=== PATIENT | male | born 1955 | race Caucasian/White ===

== ENCOUNTER → 2016-10-06 14:03 | Outpatient (CLI) | payer OTHER ==
[2015-11-27 16:12] VITALS: BMI 28.1
[~2016-10-06 14:03] MED LIST: ACETAMINOPHEN500 M1 PO; AMBIEN5 MG PO; AMITIZA24 MCG PO; BAYER CHEWABLE81 MG PO; COLACE100 MG PO; DILAUDID2 MG; DILAUDID2 MG PO; FISH OIL 1,2001 CAP PO; HYDROCODON-ACE1 EAC7 PO; NEURONTIN 300300 MG PO; NEXIUM20 MG PO; OMEPRAZOLE20 M1 PO; RENA-VITE TABL0.8 MG PO; SONATA10 MG PO; SYNTHROID175 MCG PO; THEREMS-M1 TAB PO; TUMS500 MG PO
== END | disposition home or self-care (01) ==
LOC: D.RAD 14:03
DX: M19.032 Primary osteoarthritis, left wrist (principal)

== ENCOUNTER → 2016-11-22 07:47 | Outpatient (CLI) | payer MEDICARE ==
[2015-11-27 16:12] VITALS: BMI 28.1
[~2016-11-22 07:47] MED LIST changes: -ACETAMINOPHEN500 M1 PO; -AMITIZA24 MCG PO; -BAYER CHEWABLE81 MG PO; -COLACE100 MG PO; -FISH OIL 1,2001 CAP PO; -HYDROCODON-ACE1 EAC7 PO; -OMEPRAZOLE20 M1 PO; -RENA-VITE TABL0.8 MG PO
== END | disposition home or self-care (01) ==
LOC: D.CT 07:47
DX: R52 Pain, unspecified (principal)

== ENCOUNTER 2016-12-07 07:22 | Day surgery (SDC) | payer MEDICARE ==
[~2016-12-07] VITALS: Ht 175.3 cm; Wt 104.3 kg
[2016-12-07 09:20] LABS: APTT 31.6 SECONDS (22.8-39.4); INR 1.05 (0.85-1.17); PROTIME 13.6 SECONDS (11.6-15.0)
[2016-12-07 09:21] LABS: ANION GAP 13.8 mmol/L (8-16); CALCIUM 9.4 mg/dL (8.5-10.1); CARBON DIOXIDE 30.3 mmol/L (21.0-32.0); CREATININE - SERUM 9.1 mg/dL (0.6-1.3); POTASSIUM - SERUM 5.1 mmol/L (3.5-5.1)
[2016-12-07] MEDS ORDERED: HYDROCODON-ACE1 EAC7 PO ×2 (09:29→13:37)
[2016-12-07] MEDS ORDERED: RENA-VITE TABL0.8 MG PO (09:30)
[2016-12-07] MEDS ORDERED: COLACE100 MG PO (09:30)
[2016-12-07] MEDS ORDERED: ACETAMINOPHEN500 M1 PO (09:31)
[2016-12-07] MEDS ORDERED: BAYER CHEWABLE81 MG PO (09:31)
[2016-12-07] MEDS ORDERED: OMEPRAZOLE20 M1 PO (09:31)
[2016-12-07] MEDS ORDERED: AMITIZA24 MCG PO (09:33)
[2016-12-07] MEDS ORDERED: FISH OIL 1,2001 CAP PO (09:33)
[2016-12-07 09:34] LABS: BASOPHILS 7.5 % (0-2); EOSINOPHILS 2.9 % (0-7); HEMATOCRIT 41.2 % (42.0-54.0); HEMOGLOBIN 13.2 g/dL (13.5-17.5); IMMATURE GRANULOCYTES 7.9 % (0-5); LYMPHOCYTES 13.7 % (15-50); MCH 28.1 pg (26.0-34.0); MCV 87.7 fL (80.0-100.0); MEAN PLATELET VOLUME 11.4 fL (7.4-10.4); MONOCYTES 8.9 % (2-11); NEUTROPHILS 59.1 % (40-80); RDW 15.5 % (11.5-14.5); WBC 18.3 10x3/uL (4.8-10.8)
[2016-12-07 09:36] LABS: PLATELET COUNT 290 10x3/uL (130-400)
[2016-12-07 09:38] VITALS: Ht 175.3 cm; Wt 104.3 kg
--- NOTE | 2016-12-07 13:46 | NUR ---
DAMASO AND ANAY DIFFFICULT TO OBTAIN. DR RAYA MACHADO AT BEDSIDE.
--- NOTE | 2016-12-07 13:50 | NUR ---
DOPPLER SIGNAL NOTED BY DR YUEN TO FISTULA
--- NOTE | 2016-12-07 16:00 | NUR ---
1430 O2 SAT 91 ON 2 LNC 1500 02 SAT 93 ON RA 1530 IV DC WITH CATHETHER TIP INTACT 1545 02 SAT STILL 93% ON RA
--- NOTE | 2016-12-10 13:22 | OP ---
PATIENT NAME: AUBRIE LEE MEDICAL RECORD: [id number] :57 LOCATION:[facility] ADMISSION DATE: SURGEON: RENETTA YUEN MD DATE OF OPERATION: 12/07/2016 PREOPERATIVE DIAGNOSES: 1. 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 2. Other mechanical complication of left arm arteriovenous fistula --- difficulty of access and excess pain on access. POSTOPERATIVE DIAGNOSES: 1. 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 2. Other mechanical complication of left arm arteriovenous fistula --- difficulty of access and excess pain on access. ADDITIONAL DIAGNOSES: End-stage renal disease and dependence upon renal dialysis. REFERRING PHYSICIAN: Karan Estrella MD SURGEON: Renetta Yuen MD ANESTHESIA: Supraclavicular block plus general anesthesia by LMA per KEYMODULE ASSEMBLY SUPERVISOR. OPERATION PERFORMED: Implantation of a standard wall thickness [place] Propaten 6 mm PTFE AV graft between the proximal radial artery at the level of the antecubital space and the basilic vein in the upper third of the arm. PREOPERATIVE NOTE: Mr. Lee is a 61-year-old white male patient, who has been on hospice for several years and has had a very good run with a left arm, I believe it is a brachiocephalic AV fistula. Fistula though has been increasingly difficult for the nurses to cannulate. The patient complains of pain upon cannulation and there is aneurysmal deterioration of the fistula with limited areas, which can be accessed and for all those reasons, the patient wants a new access created on the opposite arm. The patient has rather poor peripheral veins and I told him that I will do my best to try to make a primary AV fistula in his right arm, but he is agreeable and I have told him that it is possible that we might have to have a graft implanted, which of course, he does not want, he prefers a fistula at all possible as to why. Under initially supraclavicular block, which was inadequate for the operation, it did help to provide vasodilatation, the patient was given a general anesthesia with an LMA and the right arm prepped and draped in a sterile manner. I applied nitroglycerin topically to the skin of the arm and forearm and used a Luisana drain as a proximal venous tourniquet and examined him with ultrasound and found that there was really no usable vein in the forearm. There is no adequate antebrachial or cephalic vein for a standard type proximal radial artery based fistula or radiocephalic AV fistula. There was not a sufficient basilic vein to translocate. There was a median cubital vein, which courses to the cephalic vein, which just above the level of the antecubital space is sclerotic and very small. The basilic vein is the dominant vein, but there is no median cubital vein draining to it and at the level of the antecubital space, it is a considerable distance medial from the brachial, radial and ulnar arteries and would require mobilization through a separate incision and then along swing segment passed through the tunnel to create the anastomosis. The OPERATIVE REPORT [id number] AUBRIE LEE vein did not seem suitably located either for a forearm loop PTFE graft. I did also note that the patient had 2 arteries at the level of the antecubital space and followed these proximally and saw that the brachial artery in the upper third of the arm bifurcated with an early takeoff of the radial artery at that level. I elected to then implant a PTFE graft between the basilic vein and the radial artery at the antecubital space. I noted on ultrasound that the basilic vein in the upper third of the arm rather more distal than usual, joins the brachial vein to form the axillary vein. This may some point lead to problems with increased edema and would make a translocated basilic vein fistula a bit more difficult still. I made an incision on the medial aspect of the antecubital space in a hockey stick shape and exposed the anterior of the 2 arteries at that level, which I deemed to be the proximal radial artery. It was dissected and controlled with Silastic loops. Another incision was made on the medial aspect of the upper third of the arm and the basilic vein exposed and also controlled with Silastic loops. I chose a standard wall thickness 6 mm diameter PTFE Propaten graft, one end was beveled and then anastomosed end-to-side at the end of graft to side of basilic vein with running 6-0 Prolene after the vessel was flushed with heparinized saline. When the anastomosis was complete, it was treated with Evicel and later some additional Fibrillar was used for hemostasis. The release of clamps and loops demonstrated flow restored in the vein and back bleeding through the graft. The graft was then flushed again with heparinized saline and the suture line found to be sound and watertight. The graft was clamped near the venous anastomosis and then pulled through the subcutaneous tunnel and extremely close to the undersurface of the skin and passing anterior and as far lateral as I could make it with a nice arch. The graft was brought back to the arterial exposure incision. It was shortened and beveled and anastomosed end-to-side to the brachial artery. The brachial artery was also flushed with heparinized saline after it was occluded and opened. The arterial anastomosis also was completed with running 6-0 Prolene and when completed and the loops and clamps were released, there was an excellent thrill in the new graft and good continuous pulsatile flow present in the vein above the anastomosis, flow in the radial artery at the wrist was pulsatile and continuous with the Doppler and also the ulnar artery flow was pulsatile and continuous. I noted that occlusion of the graft with digital compression reduced the Doppler flow signals in the radial and ulnar arteries at the wrist back to normal high resistance circuit pulsatile signal. The patient's wounds were irrigated with Ancef/gentamicin solution, infiltrated with 0.25% Marcaine with epinephrine and closed with interrupted inverted 3-0 Vicryl and running intracuticular 4-0 Monocryl and Dermabond glue. The wounds were further dressed with Maxorb Ag, Tegaderm and Cavilon skin prep. The patient was awakened and taken to the recovery room in stable condition. Blood loss during the operation was about 10 cc and certainly unreplaced and no surgical specimens were submitted for histopathology. All instruments and needles were accounted for. No drain was used. After arrival in the recovery room, it was noted that there was no audible bruit over the graft and on inspection, there was minimal pulsatility in the graft even with proximal digital occlusion; however, the flow patterns in the radial and ulnar arteries at the wrist were unchanged with occlusion of the graft. The flow signals changed dramatically to a high resistance type pulsatile flow and then with release of the digital occlusion on the graft, flow on both ulnar and radial arteries at the wrist immediately increased and became continuous OPERATIVE REPORT [id number] AUBRIE LEE pulsatile as in a very low resistance circuit. To me, this indicates patency of the graft with low resistance in the venous outflow. Still, i gave the patient 300 mg of Plavix in the recovery room with plan to place him on Plavix 75 mg daily and have him come back to see me in my office in 1 week. He can continue all his home medications and is given a prescription for [place] 5/325. He can take 1 and if necessary 2 q.4 hours p.r.n. pain, is given 20, and no refills of course. TRANSINT:[id number] Voice Confirmation ID: [id number] DOCUMENT ID: [id number] RENETTA YUEN MD at 1322 CC: AUNG ESTRELLA MD [id number] DICTATION DATE: 12/07/16 142 BDC MANAGER: 12/07/16 2250 [facility] 12/07/16 [address] [place] [address]
== END 2016-12-07 15:45 | disposition home or self-care (01) ==
LOC: D.OPS 07:22
PROVIDERS: Surgery
DX: T82.510A Breakdown (mechanical) of surgically created arteriovenous fistula, initial encounter (principal); N18.6 End stage renal disease; Z99.2 Dependence on renal dialysis

== ENCOUNTER → 2017-07-19 10:35 | Outpatient (CLI) | payer MEDICARE ==
[2016-12-07 09:38] VITALS: BMI 34.0
[~2017-07-19 10:35] MED LIST changes: +ACETAMINOPHEN500 M1 PO; +AMITIZA24 MCG PO; +BAYER CHEWABLE81 MG PO; +COLACE100 MG PO; +FISH OIL 1,2001 CAP PO; +HYDROCODON-ACE1 EAC7 PO; +OMEPRAZOLE20 M1 PO; +RENA-VITE TABL0.8 MG PO
== END | disposition home or self-care (01) ==
LOC: D.US 10:35
DX: R30.0 Dysuria (principal); M79.641 Pain in right hand; M62.241 Nontraumatic ischemic infarction of muscle, right hand

== ENCOUNTER 2017-08-02 15:49 | Emergency (ER) | payer MEDICARE ==
[2016-12-07 09:38] VITALS: BMI 34.0
== END 2017-08-02 16:57 | disposition home or self-care (01) ==
LOC: D.ER 15:49
DX: G90.511 Complex regional pain syndrome I of right upper limb (principal)

== ENCOUNTER 2018-02-20 02:46 | Inpatient (IN) | payer MEDICARE ==
[~2018-02-20] VITALS: Ht 175.3 cm; Wt 103.4 kg
[2018-02-20] VITALS (16 sets, daily range): BP systolic 89–144; BP diastolic 52–110; BMI 32.5
--- NOTE | ~2018-02-20 | HEMODYNAMI ---
PATIENT:AUBRIE ALFONSO MEDICAL RECORD: [id number] : 57 [facility] ADMISSION DATE: 02/20/18 Generatedon:02/20/201810:26 Patient name: AUBRIE ALFONSO Patient #: [id number] SSN: DO B: 1955 Date of study: 02/20/2018 Page: Of Hemodynamic Procedure Report Patient Data Patient Demographics Procedure consent was obtained First Name: AUBRIE Gender: Male Last Name: KADEN : 1955 [facility] Initial: NEELIMA Age: 62 year(s) Patient #: [id number] Race: Unknown Additional ID: [id number] Contact details [address]: [address] [place] [address] State: [place] City: [place] Zip code: [address] Admission Admission Data Admission Date: 02/20/2018 Admission Time: 5:02 Room #: [facility] Height (in.): 69 BSA: 2.15 (m2) Height (cm.): 175.26 BMI: 32.49 (kg/m2) Weight (lbs.): 220 Weight (kg.): 99.79 Procedure Procedure Types Cath Procedure Peripheral Cath Diagnostic Procedure Cath Peripheral Abd/Extremity Renal Renal Unilateral Venography Procedure Description Procedure Date Procedure Date: 02/20/2018 Procedure Start Time: 8:53 Procedure Staff Name Function Karan Cortés MD Performing Physician Makayla Olson RT Acrylic Fabricator Pamela Meyer RN Nurse Jaylan Galindo RT Scrub Procedure Data Cath Procedure Fluoroscopy Diagnostic fluoroscopy Total fluoroscopy Time: 26 time: 26 min min Diagnostic fluoroscopy Total fluoroscopy dose: dose: 4899 mGy 4899 mGy Contrast Material Contrast Material Type Amount (ml) Isovue 300 110 Entry Location Entry Primary Successful Side Size Upsize Upsize Entry Closure Succ essful Closure Location (Fr) 1 (Fr) 2 (Fr) Remarks Device Remarks Femoral artery Femoral Angio-VIP artery 6Fr Diagnostic catheters Device Type Used For End Catheter Placement Merit ULTRA BOLUS FLUSH 5Fr 65CM catheter ([id number]) Angiodynamics SOS OMNI 2 NON B 5FR 65CM catheter ([id number]) Procedure Medications Medication Administration Route Dosage Heparin Flush Bag added to field 3 bags (1000units/500ml NS) Lidocaine 1% added to field 20 Versed I.V. 1 mg Fentanyl I.V. 50 mcg Versed I.V. 1 mg Fentanyl I.V. 50 mcg Versed I.V. 1 mg Fentanyl I.V. 50 mcg Hemodynamics Rest BSA: 2.15 (m2) O2 Consumption: Estimated: 277.36 (ml/min) O2 Consumption indexed : Estimated:129 (ml/min/m) Heart Rate: 101 (bpm) Snapshots Pre Cath Intra NCS Post Cath Vital Signs Time Heart Resp SPO2 etCO2 NIBP (mmHg) Rhythm Pain Sedation Rate (ipm) (%) (mmHg) Status Level (bpm) 8:23:16 0 157/77(123) NSR 0 (11) 10(A) , No pain 8:37:28 99 18 100 34.5 170/84(117) NSR 0 (11) 10(A) , No pain 8:41:56 99 16 100 33 166/80(114) NSR 0 (11) 10(A) , No pain 8:46:20 100 13 100 18 170/85(118) NSR 0 (11) 10(A) , No pain 8:50:42 97 14 100 32.3 166/91(120) NSR 0 (11) 10(A) , No pain 8:55:11 96 13 100 32.3 151/74(121) NSR 0 (11) 10(A) , No pain 8:59:33 98 25 100 23.3 126/64(106) NSR 0 (11) 10(A) , No pain 9:03:43 96 12 100 0 108/78(101) NSR 0 (11) 10(A) , No pain 9:08:34 93 9 100 0 129/72(110) NSR 0 (11) 10(A) , No pain 9:13:33 92 10 100 0 Measuring NSR 0 (11) 10(A) , No pain 9:13:57 91 11 100 0 121/65(100) NSR 0 (11) 10(A) , No pain 9:18:09 99 17 100 39.1 120/65(82) NSR 0 (11) 10(A) , No pain 9:22:19 93 18 25.5 111/59(91) NSR 0 (11) 10(A) , No pain 9:26:25 95 13 96 6 111/74(92) NSR 0 (11) 10(A) , No pain 9:30:33 96 10 96 0 118/65(98) NSR 0 (11) 10(A) , No pain 9:34:40 94 10 96 0 110/72(94) NSR 0 (11) 10(A) , No pain 9:39:40 97 16 94 0 Measuring NSR 0 (11) 10(A) , No pain 9:39:52 97 19 95 35.3 100/61(81) NSR 0 (11) 10(A) , No pain 9:43:51 97 12 96 38.3 113/76(94) NSR 0 (11) 10(A) , No pain 9:48:01 99 8 96 36.8 111/64(89) NSR 0 (11) 10(A) , No pain 9:52:09 96 17 94 0 102/69(86) NSR 0 (11) 10(A) , No pain 9:57:09 93 16 94 0 Measuring NSR 0 (11) 10(A) , No pain 9:57:23 94 16 94 0 100/47(93) NSR 0 (11) 10(A) , No pain 10:01:26 94 17 96 17.2 103/66(83) NSR 0 (11) 10(A) , No pain 10:05:32 91 19 95 0.7 97/59(79) NSR 0 (11) 10(A) , No pain 10:09:36 98 13 94 36 89/60(66) NSR 0 (11) 10(A) , No pain 10:14:31 95 26 94 33.8 102/52(71) NSR 0 (11) 10(A) , No pain 10:18:37 97 19 94 35.3 95/59(85) NSR 0 (11) 10(A) , No pain 10:23:36 100 21 89 32.3 Measuring NSR 0 (11) 10(A) , No pain 10:23:50 96 23 90 32.3 95/53(82) NSR 0 (11) 10(A) , No pain Medications Time Medication Route Dose Verified Delivered Reason Notes Effect iveness by by 8:49:59 Heparin Flush added 3 Karan Russo used for Bag to bags Milana Cortés MD procedure (1000units/500ml field JUÁREZ NS) 8:50:12 Lidocaine 1% added 20ml Karan Russo used for to vial Milana Cortés MD procedure field JUÁREZ 8:52:09 Versed I.V. 1 mg Karan Santiago for Mitch Cortés RN sedation 8:52:23 Fentanyl I.V. 50 Karan Pamela for mcg Mitch Cortés RN sedation 8:57:08 Versed I.V. 1 mg Karan Pamela for Mitch Cortés RN sedation 8:57:15 Fentanyl I.V. 50 Karan Pamela for Mitch Lawler RN sedation 9:49:39 Versed I.V. 1 mg Karan Santiago for Mitch Cortés RN sedation 9:49:47 Fentanyl I.V. 50 Karan Pamela for mcg Mitch Cortés RN sedation Procedure Log Time Note 8:22:15 Patient Height : 69 inches 8:22:19 Patient Weight : 220 lbs 8:22:48 Time tracking: Regular hours (M-F 7:00 - 5:00) 8:22:57 Plan of Care:Hemodynamics will remain stable., Cardiac rhythm will remain stable., Comfort level will be maintained., Respiratory function will remain adequate., Patient/ family verbilizes understanding of procedure., Procedure tolerated without complication., Recovers from procedure without complications.. 8:23:10 H&P Date Dictated: 02/20/2018 Within 30 days and on chart.. 8:23:13 Pre-procedure instructions explained to patient. 8:23:14 Pre-op teaching completed and patient verbalized understanding. 8:23:18 Family unavailable. 8:23:20 Patient NPO since Midnight. 8:26:05 Micropuncture VSI 4FR kit opened to sterile field. 8:26:06 SHEATH 5FR [place] ([id number]) opened to sterile field. 8:26:28 TUBING Contrast Injection High Pressure (EUG184K) opened to sterile field. 8:26:29 DOC .035 wire (G05533) opened to sterile field. 8:36:06 Patient received from ICU to IR Alert and oriented. Tansferred to table in Supine position. 8:36:08 Correct patient and procedure confirmed by team. 8:36:10 Signed procedure consent form obtained from patient. 8:36:11 ECG and BP/O2 sat monitors applied to patient. 8:36:12 Vital chart was started 8:36:13 Baseline sample Acquired. 8:36:14 Full Disclosure recording started 8:36:14 - 8:36:27 Is the patient allergic to Iodine/contrast media? Yes. 8:36:42 Is patient on blood thinner?No 8:36:46 Patient diabetic? No. 8:36:48 - 8:36:52 ----Pre-sedation anethsthesia assessment.---- 8:37:10 Previous problem with sedation/anesthesia? Yes has trouble waking up, per patient 8:37:14 Snore? Yes 8:37:18 Sleep apnea? No 8:37:25 Deviated septum? No 8:37:27 Opens mouth fully? Yes 8:37:29 Sticks out tongue? Yes 8:37:35 Airway obstruction? No ? 8:37:42 Dentures? No ? 8:38:17 IV patent on arrival in Rt subclavian with D5/.45%NaCl at KVO. 8:38:23 Right groin area was prepped with chlora-prep and draped in sterile fashion 8:38:47 A HeTexted ULTRA BOLUS FLUSH 5Fr 65CM catheter ([id number]) was advanced over the wire and used for . 8:49:59 Heparin Flush Bag (1000units/500ml NS) 3 bags added to field was administered by Karan Cortés MD; used for procedure; 8:50:12 Lidocaine 1% 20ml vial added to field was administered by Karan Cortés MD; used for procedure; 8:50:52 Physician arrived 8:51:31 --------ALL STOP TIME OUT------ 8:51:32 Final Timeout: patient, procedure, and site verified with staff and physician. All members of the team are in agreement. 8:52:09 Versed 1 mg I.V. was administered by Pamela Meyer RN; for sedation; 8:52:23 Fentanyl 50 mcg I.V. was administered by Pamela Meyer RN; for sedation ; 8:52:58 Procedure started. 8:53:03 Local anesthetic to right femoral artery with Lidocaine 1% by Karan Cortés MD.INITIAL ACCESS ONLY 8:57:08 Versed 1 mg I.V. was administered by Pamela Meyer RN; for sedation; 8:57:15 Fentanyl 50 mcg I.V. was administered by Pamela Meyer RN; for sedation ; 9:00:19 Arterial access obtained using ultrasound guidance. 9:02:51 A AngioCinemaWell.com OMNI 2 NON B 5FR 65CM catheter ([id number]) was advanced over the wire and used for . 9:05:05 Bilateral renal angiography performed. 9:07:13 Left renal angiography performed. 9:09:53 RENEGADE STAIGHT 150CM microcatheter ([id number]) opened to sterile field. 9:10:23 GLIDE WIRE GT DOUBLE ANGLE .018 (RG*[id number]) opened to sterile field. 9:21:24 COIL Concerto 2mm x 4cm ([id number]) opened to sterile field. 9:21:58 IDL Instant Fitness Attendant (ID1) opened to sterile field. 9:24:43 TRANSEND STEERABLE wire ([id number]) opened to sterile field. 9:47:01 COIL Concerto 3mm x 4cm (YY76MFDWJ) opened to sterile field. 9:47:02 COIL Concerto 3mm x 4cm ([id number]) opened to sterile field. 9:49:39 Versed 1 mg I.V. was administered by Pamela Mitch RN; for sedation; 9:49:47 Fentanyl 50 mcg I.V. was administered by Pamela Meyer RN; for sedation ; 9:50:00 COIL Concerto 3mm x 8cm (UL88VRSDP) opened to sterile field. 10:06:26 COIL Concerto 5 x 20 ([id number]) opened to sterile field. 10:14:09 COIL Concerto 5 x 20 ([id number]) opened to sterile field. 10:17:36 A sheath was inserted into the Femoral artery 10:19:12 ANGIOSEAL-VIP PLUS 6 FR opened to sterile field. 10:19:54 Sheath removed intact; hemostasis achieved with Angio-VIP 6Fr to the Femoral artery. 10:19:54 A sheath was inserted into the Femoral artery 10:20:01 Procedure ended.(Physican Out) 10:22:12 Fluoroscopy time 26.00 minutes. 10:22:17 Fluoroscopy dose: 4899 mGy 10:22:17 Flurop Dose total: 4899 10:22:22 Contrast amount:Isovue 300 110ml. 10:22:47 Procedure and supply charges have been captured, reviewed, submitted an d are correct. 10:26:24 Report given to ICU. 10:26:55 Vital chart was stopped Device Usage Item Name Manufacture Quantity Catalog Number Hospital Part Current Minimal Lot# / Charge Number Stock Stock Serial# Code Micropuncture VSI VASCULAR 1 [id number] 5 VSI 4FR kit SOLUTIONS SHEATH 5FR Terumo 1 [id number] [id number] 742423 [id number] 40 [place] ([id number]) TUBING [facility] Medical 1 [id number] 002899 869795 5 Contrast Injection High Pressure (TFY133I) DOC .035 wire [employer] 1 [id number] 927902 546744 5 ([id number]) Merit ULTRA [facility] Medical 1 [id number] 558450 768914 5 BOLUS FLUSH 5Fr 65CM catheter ([id number]) Angiodynamics Angiodynamics 1 [id number] 076532 48413 557293 5 SOS OMNI 2 NON B 5FR 65CM catheter ([id number]) RENEGADE [place] 1 [id number] 831131 161331 5 STAIGHT 150CM Scientific microcatheter ([id number]) GLIDE WIRE GT Terumo 1 [id number] 646755 488502 5 DOUBLE ANGLE .018 ([id number]) COIL Concerto Medtronic 1 NV-2-4HELIX 348379 828516 45018 5 [id number] 2mm x 4cm ([id number]) IDL Instant B. Weeks 1 ID-1 [id number] 555112 5 Fitness Attendant (ID1) TRANSEND [place] 1 [id number] 671708 971597 5 STEERABLE wire Scientific ([id number]) COIL Concerto Medtronic 2 UD-0-3-HELIX 793049 641871 760146 5 [id number] 3mm x 4cm [id number] ([id number]) COIL Concerto Medtronic 1 NI-7-6-HELIX 385046 340220 597795 5 [id number] 3mm x 8cm ([id number]) COIL Concerto Medtronic 2 UR-0-1-HELIX 829599 486478 063413 5 [id number] 5 x 20 [id number] ([id number]) ANGIOSEAL-VIP [facility] [place] 1 714019 055049 268475 5 [id number] PLUS 6 FR Signature Audit [place] Stage Time Signature Unsigned Intra-Procedure 02/20/2018 Makayla Olson 10:26:51 AM RT(R) [facility] [address] [place] [address]
[2018-02-20 03:46] LABS: BASOPHILS 2.5 % (0-2); EOSINOPHILS 5.5 % (0-7); HEMATOCRIT 30.7 % (42.0-54.0); HEMOGLOBIN 10.3 g/dL (13.5-17.5); IMMATURE GRANULOCYTES 0.1 % (0-5); LYMPHOCYTES 39.8 % (15-50); MCH 32.2 pg (26.0-34.0); MCHC 33.6 g/dL (31.0-37.0); MCV 95.9 fL (80.0-100.0); MEAN PLATELET VOLUME 10.6 fL (7.4-10.4); MONOCYTES 5.9 % (2-11); NEUTROPHILS 46.2 % (40-80); PLATELET COUNT 195 10x3/uL (130-400); RDW 15.6 % (11.5-14.5)
[2018-02-20 03:54] LABS: ALBUMIN 2.9 g/dL (3.4-5.0); ALKALINE PHOSPHATASE 50 U/L (46-116); ALT (SGPT) 15 U/L (10-68); BILIRUBIN - TOTAL 0.33 mg/dL (0.2-1.3); CALC OSMOLALITY 296 mosm/kg (275-300); CALCIUM 8.8 mg/dL (8.5-10.1); CARBON DIOXIDE 30.7 mmol/L (21.0-32.0); CHLORIDE - SERUM 105 mmol/L (98-107); CREATININE - SERUM 9.9 mg/dL (0.6-1.3); GLUCOSE 137 mg/dL (74-106); POTASSIUM - SERUM 4.3 mmol/L (3.5-5.1); PROTEIN - SERUM 5.9 g/dL (6.4-8.2); SODIUM 142 mmol/L (136-145); UREA NITROGEN 45 mg/dL (7-18); eGFR NON AFRICAN AMERICAN 6 mL/min (90-120)
[2018-02-20 04:00] LABS: LIPASE 194 U/L (73-393); TROPONIN-I < 0.017 ng/mL (0.000-0.060)
[2018-02-20 04:15] LABS: APPEARANCE CLEAR (CLEAR); BILIRUBIN NEGATIVE (NEGATIVE); COLOR YELLOW (YELLOW); GLUCOSE 50 mg/dL (NEGATIVE); KETONE NEGATIVE (NEGATIVE); NITRITE NEGATIVE (NEGATIVE); PROTEIN 3+ mg/dL (NEGATIVE); UROBILINOGEN NORMAL (NORMAL)
[2018-02-20 04:18] LABS: BACTERIA FEW /hpf (NONE SEEN); EPITHELIAL CELLS 0-5 /hpf (0-5); GRANULAR CAST RARE /lpf (NONE SEEN); HYALINE CAST OCC /lpf (NONE SEEN); RED CELLS - URINE 0-5 /hpf (0-5); UDS - AMPHET NEGATIVE QUAL (NEGATIVE); UDS - BARB NEGATIVE QUAL (NEGATIVE); UDS - BENZO NEGATIVE QUAL (NEGATIVE); UDS - COCAINE NEGATIVE QUAL (NEGATIVE); UDS - OPIATE NEGATIVE QUAL (NEGATIVE); UDS - PCP NEGATIVE QUAL (NEGATIVE); UDS - THC NEGATIVE QUAL (NEGATIVE); WHITE CELLS - URINE OCC /hpf (0-5)
[2018-02-20 06:27] LABS: HEMATOCRIT 25.1 % (42.0-54.0); HEMOGLOBIN 8.4 g/dL (13.5-17.5)
[2018-02-20 07:21] LABS: INR 1.49 (0.85-1.17); PROTIME 17.5 SECONDS (11.6-15.0)
[2018-02-20 12:28] LABS: HEMATOCRIT 31.2 % (42.0-54.0); HEMOGLOBIN 10.4 g/dL (13.5-17.5); MCH 30.3 pg (26.0-34.0); MCHC 33.3 g/dL (31.0-37.0); PLATELET COUNT 137 10x3/uL (130-400); RBC 3.43 10x6/uL (4.20-6.10); RDW 16.9 % (11.5-14.5); WBC 22.3 10x3/uL (4.8-10.8)
[2018-02-20 12:55] LABS: LYMPHOCYTES 2 % (15-50); MONOCYTES 4 % (2-11); NEUTROPHILS 91 % (40-80); PLATELET ESTIMATE DECREASED; PLATELET MORPHOLOGY GIANT PLTS PRESENT
[2018-02-20 16:30] LABS: BASOPHILS 0 % (0-2); EOSINOPHILS 0 % (0-7); HEMATOCRIT 30.5 % (42.0-54.0); HEMOGLOBIN 10.4 g/dL (13.5-17.5); IMMATURE GRANULOCYTES 0.3 % (0-5); LYMPHOCYTES 3.9 % (15-50); MCH 30.9 pg (26.0-34.0); MCHC 34.1 g/dL (31.0-37.0); MCV 90.5 fL (80.0-100.0); MEAN PLATELET VOLUME 10.3 fL (7.4-10.4); MONOCYTES 1.8 % (2-11); PLATELET COUNT 148 10x3/uL (130-400); RBC 3.37 10x6/uL (4.20-6.10); RDW 17.4 % (11.5-14.5); WBC 30.8 10x3/uL (4.8-10.8)
[2018-02-20 21:09] LABS: BASOPHILS 0 % (0-2); EOSINOPHILS 0 % (0-7); HEMATOCRIT 27.7 % (42.0-54.0); HEMOGLOBIN 9.6 g/dL (13.5-17.5); IMMATURE GRANULOCYTES 0.4 % (0-5); LYMPHOCYTES 1.6 % (15-50); MCH 31.1 pg (26.0-34.0); MCHC 34.7 g/dL (31.0-37.0); MCV 89.6 fL (80.0-100.0); MEAN PLATELET VOLUME 10.7 fL (7.4-10.4); MONOCYTES 4.4 % (2-11); NEUTROPHILS 93.6 % (40-80); PLATELET COUNT 131 10x3/uL (130-400); RBC 3.09 10x6/uL (4.20-6.10); RDW 17.4 % (11.5-14.5)
[2018-02-21] VITALS (20 sets, daily range): BP systolic 79–162; BP diastolic 25–76; Ht 175.3 cm; Wt 103.4 kg
[2018-02-21 06:44] LABS: BASOPHILS 0.1 % (0-2); EOSINOPHILS 0 % (0-7); HEMATOCRIT 23.6 % (42.0-54.0); HEMOGLOBIN 8.2 g/dL (13.5-17.5); IMMATURE GRANULOCYTES 0.4 % (0-5); MCH 31.5 pg (26.0-34.0); MCHC 34.7 g/dL (31.0-37.0); MCV 90.8 fL (80.0-100.0); MEAN PLATELET VOLUME 10.6 fL (7.4-10.4); MONOCYTES 4.5 % (2-11); PLATELET COUNT 120 10x3/uL (130-400); RDW 17.5 % (11.5-14.5); WBC 28.2 10x3/uL (4.8-10.8)
[2018-02-21 07:03] LABS: ALBUMIN 2.6 g/dL (3.4-5.0); BILIRUBIN - TOTAL 0.46 mg/dL (0.2-1.3); CARBON DIOXIDE 27.2 mmol/L (21.0-32.0); CREATININE - SERUM 11.6 mg/dL (0.6-1.3); MAGNESIUM - SERUM 1.9 mg/dL (1.8-2.4); PHOSPHOROUS 6.6 mg/dL (2.5-4.9); PROTEIN - SERUM 5.7 g/dL (6.4-8.2)
[2018-02-21 07:11] LABS: INR 1.38 (0.85-1.17); PROTIME 16.5 SECONDS (11.6-15.0)
[2018-02-21 07:15] LABS: ANION GAP 16.7 mmol/L (8-16); POTASSIUM - SERUM 5.9 mmol/L (3.5-5.1)
[2018-02-21 19:07] LABS: BASOPHILS 0.2 % (0-2); EOSINOPHILS 0.1 % (0-7); HEMATOCRIT 27.2 % (42.0-54.0); HEMOGLOBIN 9.2 g/dL (13.5-17.5); IMMATURE GRANULOCYTES 0.3 % (0-5); LYMPHOCYTES 6.8 % (15-50); MCH 31.1 pg (26.0-34.0); MCHC 33.8 g/dL (31.0-37.0); MCV 91.9 fL (80.0-100.0); MEAN PLATELET VOLUME 10.9 fL (7.4-10.4); MONOCYTES 6.7 % (2-11); NEUTROPHILS 85.9 % (40-80); PLATELET COUNT 115 10x3/uL (130-400); RBC 2.96 10x6/uL (4.20-6.10); RDW 16.6 % (11.5-14.5)
[2018-02-21 19:29] LABS: WBC 18.2 10x3/uL (4.8-10.8)
[2018-02-22 00:47] VITALS: BP 142/71
[2018-02-22 06:01] VITALS: BP 109/56
[2018-02-22 08:08] VITALS: BP 148/57
[2018-02-22 10:41] VITALS: BP 150/69
[2018-02-22 10:48] LABS: BASOPHILS 0.3 % (0-2); EOSINOPHILS 0.2 % (0-7); HEMATOCRIT 26.2 % (42.0-54.0); HEMOGLOBIN 8.8 g/dL (13.5-17.5); IMMATURE GRANULOCYTES 0.2 % (0-5); LYMPHOCYTES 4.4 % (15-50); MCH 31.1 pg (26.0-34.0); MCHC 33.6 g/dL (31.0-37.0); MCV 92.6 fL (80.0-100.0); MEAN PLATELET VOLUME 11.3 fL (7.4-10.4); MONOCYTES 8.5 % (2-11); NEUTROPHILS 86.4 % (40-80); PLATELET COUNT 108 10x3/uL (130-400); RBC 2.83 10x6/uL (4.20-6.10); RDW 16.7 % (11.5-14.5); WBC 14.6 10x3/uL (4.8-10.8)
[2018-02-22 12:28] LABS: ALBUMIN 2.8 g/dL (3.4-5.0); ANION GAP 16.3 mmol/L (8-16); BILIRUBIN - TOTAL 0.56 mg/dL (0.2-1.3); CALCIUM 7.9 mg/dL (8.5-10.1); CARBON DIOXIDE 28.9 mmol/L (21.0-32.0); CREATININE - SERUM 9.6 mg/dL (0.6-1.3); POTASSIUM - SERUM 5.2 mmol/L (3.5-5.1)
[2018-02-22 15:25] VITALS: BP 175/62
[2018-02-22 20:22] VITALS: BP 139/53
[2018-02-23 00:20] VITALS: BP 162/63
[2018-02-23 05:53] VITALS: BP 75/55
[2018-02-23 05:55] LABS: BASOPHILS 0.3 % (0-2); EOSINOPHILS 0.2 % (0-7); HEMATOCRIT 24.4 % (42.0-54.0); HEMOGLOBIN 8.2 g/dL (13.5-17.5); IMMATURE GRANULOCYTES 0.3 % (0-5); LYMPHOCYTES 11.1 % (15-50); MCH 31.3 pg (26.0-34.0); MCHC 33.6 g/dL (31.0-37.0); MCV 93.1 fL (80.0-100.0); MEAN PLATELET VOLUME 10.9 fL (7.4-10.4); MONOCYTES 9.2 % (2-11); NEUTROPHILS 78.9 % (40-80); PLATELET COUNT 109 10x3/uL (130-400); RBC 2.62 10x6/uL (4.20-6.10); RDW 16.4 % (11.5-14.5); WBC 12.1 10x3/uL (4.8-10.8)
[2018-02-23 06:11] LABS: CALCIUM 7.9 mg/dL (8.5-10.1); CARBON DIOXIDE 27.9 mmol/L (21.0-32.0); CREATININE - SERUM 10.9 mg/dL (0.6-1.3); POTASSIUM - SERUM 4.9 mmol/L (3.5-5.1)
[2018-02-23 08:33] VITALS: BP 133/58
[2018-02-23 12:55] VITALS: BP 149/58
[2018-02-23 15:38] VITALS: BP 163/57
[2018-02-24] VITALS: BP 107/68
[2018-02-24 05:37] LABS: BASOPHILS 0.2 % (0-2); EOSINOPHILS 1.4 % (0-7); HEMATOCRIT 26.2 % (42.0-54.0); HEMOGLOBIN 8.7 g/dL (13.5-17.5); IMMATURE GRANULOCYTES 0.2 % (0-5); LYMPHOCYTES 9.2 % (15-50); MCH 30.9 pg (26.0-34.0); MCHC 33.2 g/dL (31.0-37.0); MCV 92.9 fL (80.0-100.0); MEAN PLATELET VOLUME 10.9 fL (7.4-10.4); RBC 2.82 10x6/uL (4.20-6.10); RDW 15.8 % (11.5-14.5); WBC 9.2 10x3/uL (4.8-10.8)
[2018-02-24 05:53] LABS: ANION GAP 11.5 mmol/L (8-16); CARBON DIOXIDE 30.8 mmol/L (21.0-32.0); POTASSIUM - SERUM 4.3 mmol/L (3.5-5.1)
[2018-02-24 05:59] LABS: CREATININE - SERUM 7.8 mg/dL (0.6-1.3)
[2018-02-24 06:00] LABS: PLATELET COUNT 132 10x3/uL (130-400)
[2018-02-24 09:30] VITALS: BP 183/57
[2018-02-24 12:47] VITALS: BP 195/97
[2018-02-24 16:54] VITALS: BP 163/59
[2018-02-24 20:30] VITALS: BP 173/65
[2018-02-25] VITALS: BP 132/54
[2018-02-25 04:00] VITALS: BP 141/72
[2018-02-25 06:42] LABS: BASOPHILS 0.5 % (0-2); EOSINOPHILS 4.1 % (0-7); HEMATOCRIT 26.7 % (42.0-54.0); IMMATURE GRANULOCYTES 0.3 % (0-5); LYMPHOCYTES 11.2 % (15-50); MCH 31.4 pg (26.0-34.0); MCHC 33.7 g/dL (31.0-37.0); MEAN PLATELET VOLUME 9.9 fL (7.4-10.4); MONOCYTES 13.2 % (2-11); NEUTROPHILS 70.7 % (40-80); PLATELET COUNT 151 10x3/uL (130-400); RBC 2.87 10x6/uL (4.20-6.10); RDW 15.5 % (11.5-14.5); WBC 9.2 10x3/uL (4.8-10.8)
[2018-02-25 06:55] LABS: ANION GAP 12.6 mmol/L (8-16); CARBON DIOXIDE 29.6 mmol/L (21.0-32.0); POTASSIUM - SERUM 4.2 mmol/L (3.5-5.1)
[2018-02-25 07:05] LABS: CREATININE - SERUM 10.1 mg/dL (0.6-1.3)
[2018-02-25 08:24] VITALS: BP 111/50
== END 2018-02-25 18:45 | disposition home or self-care (01) | DRG 356 ==
LOC: D.ER 02:46 → D.ICU 05:02 → D.EDHOLD 05:02 → D.ICU 05:21 → D.M2 02-21 23:20
PROVIDERS: Family Medicine; General Practice; Internal Medicine; Internal Medicine Nephrology; Urology
PROC: 04LA3DZ Occlusion of Left Renal Artery with Intraluminal Device, Percutaneous Approach (ICD-10-PCS; 2018-02-20)
PROC: B4181ZZ Fluoroscopy of Bilateral Renal Arteries using Low Osmolar Contrast (ICD-10-PCS; principal; 2018-02-20 08:15)
DX: K66.1 Hemoperitoneum (principal); N18.6 End stage renal disease; I12.0 Hypertensive chronic kidney disease with stage 5 chronic kidney disease or end stage renal disease; C92.10 Chronic myeloid leukemia, BCR/ABL-positive, not having achieved remission; N28.89 Other specified disorders of kidney and ureter; D63.1 Anemia in chronic kidney disease; D50.0 Iron deficiency anemia secondary to blood loss (chronic); E87.5 Hyperkalemia; I95.9 Hypotension, unspecified; Z87.891 Personal history of nicotine dependence

== ENCOUNTER 2020-05-26 19:29 | Emergency (ER) | payer OTHER ==
[~2020-05-26] VITALS: Ht 175.3 cm; Wt 97.1 kg
[2020-05-26 19:50] VITALS: Ht 175.3 cm; Wt 97.1 kg
[2020-05-26] MEDS ORDERED: RENVELA800 MG PO (19:53)
[2020-05-26] MEDS ORDERED: ATARAX 25 MG TA25 MG PO (19:54)
[2020-05-26] MEDS ORDERED: ZANAFLEX4 MG PO (19:54)
[2020-05-26] MEDS ORDERED: PROZAC10 MG PO (19:54)
[2020-05-26 21:11] LABS: BASOPHILS 1.3 % (0-2); EOSINOPHILS 2.5 % (0-7); HEMATOCRIT 30.8 % (42.0-54.0); HEMOGLOBIN 10.2 g/dL (13.5-17.5); IMMATURE GRANULOCYTES 0.5 % (0-5); LYMPHOCYTES 14.8 % (15-50); MCH 32.9 pg (26.0-34.0); MCHC 33.1 g/dL (31.0-37.0); MCV 99.4 fL (80.0-100.0); MEAN PLATELET VOLUME 10.3 fL (7.4-10.4); MONOCYTES 10.4 % (2-11); NEUTROPHILS 70.5 % (40-80); RDW 14.1 % (11.5-14.5); WBC 10.2 10x3/uL (4.8-10.8)
[2020-05-26 21:12] LABS: PLATELET COUNT 206 10x3/uL (130-400)
[2020-05-26 21:22] LABS: ANION GAP 7.3 mmol/L (8-16); APTT 31.7 SECONDS (22.8-39.4); CALCIUM 8.4 mg/dL (8.5-10.1); CARBON DIOXIDE 33.9 mmol/L (21.0-32.0); CREATININE - SERUM 5.3 mg/dL (0.6-1.3); INR 1.07 (0.85-1.17); POTASSIUM - SERUM 4.2 mmol/L (3.5-5.1); PROTIME 13.8 SECONDS (11.6-15.0)
[2020-05-26 21:28] LABS: ALBUMIN 2.7 g/dL (3.4-5.0); BILIRUBIN - TOTAL 0.39 mg/dL (0.2-1.3)
[2020-05-27 00:28] VITALS: BP 137/50
== END 2020-05-27 00:28 | disposition home or self-care (01) ==
LOC: D.ER 19:29
PROVIDERS: Family Medicine
DX: T82.838A Hemorrhage due to vascular prosthetic devices, implants and grafts, initial encounter (principal); N18.6 End stage renal disease; Z99.2 Dependence on renal dialysis; G62.9 Polyneuropathy, unspecified

== ENCOUNTER 2021-01-05 12:49 | Observation (INO) | payer OTHER ==
[~2021-01-05] VITALS: Ht 175.3 cm; Wt 94.5 kg
[~2021-01-05 12:49] MED LIST changes: +ATARAX 25 MG TA25 MG PO; +HYDROCORTISONE30 G8 TOPICAL; +PROZAC10 MG PO; +RENVELA800 MG PO; +ULTRAM50 MG PO; +ZANAFLEX4 MG PO
[2021-01-05 13:18] LABS: BASOPHILS 1.2 % (0-2); EOSINOPHILS 1.6 % (0-7); HEMATOCRIT 34.3 % (42.0-54.0); HEMOGLOBIN 11.3 g/dL (13.5-17.5); LYMPHOCYTES 7.2 % (15-50); MCH 31.7 pg (26.0-34.0); MCHC 32.8 g/dL (31.0-37.0); MCV 96.5 fL (80.0-100.0); MEAN PLATELET VOLUME 8.7 fL (7.4-10.4); MONOCYTES 8.9 % (2-11); NEUTROPHILS 81.1 % (40-80); RBC 3.56 10x6/uL (4.20-6.10); RDW 14.5 % (11.5-14.5); WBC 15.9 10x3/uL (4.8-10.8)
[2021-01-05 13:20] LABS: PLATELET COUNT 230 10x3/uL (130-400)
--- NOTE | 2021-01-05 13:21 | NUR ---
WENT IN TO ROOM VIA PATIENTS CALL LIGHT, PATIENT WANTED TO INFORM NURSE THAT HE TOOK 8MG'S OF ZOFRAN, HIS HOME MEDICATIONS FOR N/V.
[2021-01-05 13:26] LABS: INR 1.22 (0.85-1.17); PROTIME 14.3 SECONDS (11.6-15.0)
[2021-01-05 13:27] LABS: ANION GAP 10.1 mmol/L (8-16); CALCIUM 9.3 mg/dL (8.5-10.1); CARBON DIOXIDE 31.6 mmol/L (21.0-32.0); CREATININE - SERUM 6.1 mg/dL (0.6-1.3); POTASSIUM - SERUM 3.7 mmol/L (3.5-5.1)
[2021-01-05 13:36] LABS: ALBUMIN 2.7 g/dL (3.4-5.0); BILIRUBIN - TOTAL 0.5 mg/dL (0.2-1.3); PROTEIN - SERUM 6.2 g/dL (6.4-8.2); TROPONIN-I 0.042 ng/mL (0.000-0.060)
[2021-01-05 15:39] LABS: CKMB 1.3 U/L (0.0-3.6); CREATINE KINASE 67 UL (21-232); TROPONIN-I 0.037 ng/mL (0.000-0.060)
--- NOTE | 2021-01-05 16:09 | NUR ---
REPORT CALLED TO SHIRA LYMAN ON M2. PT MOVING TO ROOM 7317
[2021-01-05] MEDS ORDERED: GLEEVEC100 MG PO (16:48)
[2021-01-05 17:27] VITALS: BP 157/88; Ht 175.3 cm; Wt 94.5 kg
[2021-01-05 20:08] LABS: CKMB 1.3 U/L (0.0-3.6); CREATINE KINASE 61 UL (21-232); TROPONIN-I 0.043 ng/mL (0.000-0.060)
[2021-01-05 20:16] VITALS: BP 105/19
--- NOTE | 2021-01-05 21:00 | NUR ---
REPORT RECEIVED. PT A&O, RESTING IN BED. NO S/S OF DISTRESS OBSERVED. RR EVEN & UNLABORED ON RA. ASSESSMENT COMPLETE. PT INQUIRED ABOUT HIS CHEMO MED. TOLD PT THAT THIS NURSE WOULD SPEAK WITH PHARMACOLOGY ASSOCIATE PHYSICIAN/PROGRAM SCHEDULE CLERK ABOUT RESTARTING THE MEDICATION. PROGRAM SCHEDULE CLERK GAVE ORDERS TO RESTART MED, HOWEVER, THIS MEDICATION IS NOT AVAILABLE IN OUR XIS. PT STATED HE WAS LEAVING AMA BC HE WOULD IF HE DIDN'T GET THAT MED TONIGHT. EDUCATED PT ABOUT THE IMPORTANCE OF COMPLETING HIS ADMISSION AND FOLLOWING THE MDS ORDERS. EDUCATED PT ABOUT THE CHEMO MEDICATION AND THAT PHARMACY COULD BRING THAT MED TO THE FLOOR IN THE MORNING. PT REFUSED, STATED HE WAS LEAVING AMA. ASKED PT IF HE WOULD LIKE TO SPEAK WITH THE PROGRAM SCHEDULE CLERK BEFORE LEAVING. PT REFUSED. PT DENIES ANY FURTHER NEEDS AT THIS TIME. NO IV ACCESS. TELEMETRY REMOVED. CRATING AND MOVING ESTIMATOR AND JIMMY DE LA PAZ APN NOTIFIED.
== END 2021-01-05 23:52 | disposition left against medical advice (07) ==
LOC: D.ER 12:49 → OBSVTIME 15:03 → D.M2 15:03
PROVIDERS: Student in an Organized Health Care Education/Training Program; ADMIT Family Medicine; ATTEND Family Medicine
DX: I13.0 Hypertensive heart and chronic kidney disease with heart failure and stage 1 through stage 4 chronic kidney disease, or unspecified chronic kidney disease (principal); R07.9 Chest pain, unspecified; F03.90 Unspecified dementia, unspecified severity, without behavioral disturbance, psychotic disturbance, mood disturbance, and anxiety; G62.9 Polyneuropathy, unspecified; I25.10 Atherosclerotic heart disease of native coronary artery without angina pectoris; N18.6 End stage renal disease; Z99.2 Dependence on renal dialysis